=== PATIENT | female | born 1950 | race Caucasian/White ===

== ENCOUNTER 2022-01-02 20:54 | Inpatient (IN) | payer MEDICARE, OTHER ==
[~2022-01-02] VITALS: Ht 167.6 cm; Wt 71.7 kg
--- NOTE | 2022-01-02 21:00 | NUR ---
Patient is medically cleared by Dr Hu
[2022-01-02] MEDS ORDERED: ALPRAZOLAM 0.25 MG TABLET PO ONE (21:15)
--- NOTE | 2022-01-02 21:30 | NUR ---
Report given to Christin ALEXANDER- [facility]
[2022-01-02 22:43] VITALS: BP 142/81
--- NOTE | 2022-01-02 22:44 | NUR ---
Pt. admitted to [facility] ROOM 145B , under care of Dr. TORRES Belongs List completed Grayson RN aware of patient's arrival
[2022-01-02] MEDS ORDERED: ZOLPIDEM 5 MG TABLET PO PRN (23:00)
[2022-01-02] MEDS ORDERED: MAG HYDROX/AL HYDROX/SIMETH 30 ML LIQUID UDC PO PRN (23:00)
[2022-01-02] MEDS ORDERED: BLOOD SUGAR DIAGNOSTIC 1 EACH STRIP VI ONE (23:00)
[2022-01-02] MEDS ORDERED: MAGNESIUM HYDROXIDE 30 ML LIQUID UDC PO PRN (23:00)
--- NOTE | 2022-01-02 23:45 | NUR ---
AT APPROX 22:45 ADMITTED 71 YEARS OLD FEMALE TO [facility] ON A 5150 HOLD FOR DTS. ACCORDING TO THE HOLD, PATIENT WAS YELLING AT BYSTANDERS. 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 SHE ADMITS PREVIOUS 5150 HOLDS. UPON ADMISSION, PATIENT IS A/O X 2 TO 3. SHE NOTED ANXIOUS, PARANOID DELUSIONS AND HYPERVERBAL, PATIENT WAS GIVEN XANAX AT THE ER JUST BEFORE ADMISSION TO THE UNIT. PATIENT REFLECTS WHAT IS WRITE ON THE HOLD. SHE STATED TO THIS COOK FRUIT, "SEE THIS NUNEZ? THOSE ARE SCARS FROM A NUCLEAR ATTACK. DON'T TOUCH THEM BECAUSE YOU WILL GET RADIATION".PATIENT DENIED SI BUT APPEARS TO HAVE HALLUCINATIONS AND DELUSIONS. PATIENT WAS ADVISED OF HER HOLD. SHE WAS GIVEN HER ADVISEMENT WELL HER BOOKLET FOR PATIENT'S RIGHT IN A MENTAL HEALTH FACILITIES. PATIENT'S HOLD WILL ON 01/04/21 AT 2256. SHE IS UNDER THE CARE OF DR TORRES AND JOHNY POE. PT BELONGING WERE INVENTORIED AND SECURED. WILL CONTINUE WITH Q15 MIN CHECKS.
[2022-01-03 07:30] VITALS: BP 116/63
[2022-01-03] MEDS: OLANZAPINE 2.5 MG TABLET PO SCH ×3 (09:00→17:00)
[2022-01-03] MEDS: DIVALPROEX 125 MG TABLET.DR PO SCH ×4 (09:00→17:00)
--- NOTE | 2022-01-03 09:30 | NUR ---
Anxious, angry, refused to take medications, uncooperative with care and will not listen to explanation
--- NOTE | 2022-01-03 10:49 | NUR ---
GPS: FILED AND FAXED [id number] [facility]. PT GIVEN A COPY OF HOLD.
--- NOTE | 2022-01-03 13:01 | NUR ---
Refused to take Depakote
--- NOTE | 2022-01-03 17:02 | NUR ---
Still refused to take medications - Depakote and Zyprexa.
[2022-01-03 17:19] VITALS: BP 110/58
--- NOTE | 2022-01-03 20:00 | NUR ---
RECEIVED PATIENT IN HER ROOM IN BED. PATIENT NOTED AWAKE. SHE APPEARS TO HAVE VISUAL AND AUDITORY HALLUCINATIONS. SHE IS OBSERVED TALKING TO HERSELF, STARING AT THE FITCH. SHE IS A POOR HISTORIAN. SHE IS WITHDRAWN AND ISOLATIVE. SHE IS REASSURED FOR HER SAFETY. SAFETY AND FALL PRECAUTIONS ARE IN PLACE. HIS V/S ARE STABLE. PATIENT IN NO DISTRESS. HE WAS GIVEN PO FLUIDS AND SNACKS. WILL CONTINUE TO MONITOR,
[2022-01-03 21:09] VITALS: BP 123/61
[2022-01-04 07:27] LABS: HEMATOCRIT 37.6 % (31.2-41.9); MEAN CORPUSCULAR HEMOGLOBIN 31.6 uug (24.7-32.8); MEAN CORPUSCULAR VOLUME 89.8 fL (75.5-95.3); PLATELET COUNT (AUTO) 258 K/uL (179-408)
[2022-01-04 07:30] VITALS: BP 133/66
[2022-01-04 07:46] LABS: THYROID STIMULATING HORMONE 0.957 mIU/mL (0.358-3.740)
[2022-01-04 08:12] LABS: BILIRUBIN,TOTAL 0.4 mg/dL (0.2-1.0); CREATININE 0.7 mg/dL (0.6-1.3); MAGNESIUM 2.1 mg/dL (1.8-2.4); PHOSPHOROUS 3.6 mg/dL (2.5-4.9); POTASSIUM 3.9 mmol/L (3.5-5.1); TOTAL PROTEIN, SERUM 6.6 g/dL (6.4-8.2)
[2022-01-04] MEDS: DIVALPROEX 125 MG TABLET.DR PO SCH ×3 (09:10→17:00)
[2022-01-04] MEDS: ARIPIPRAZOLE 5 MG TABLET PO SCH (09:10)
[2022-01-04] MEDS: CYANOCOBALAMIN 1000 MCG/ML VIAL IM SCH (09:12)
--- NOTE | 2022-01-04 12:27 | NUR ---
GPS: 14 DAY HOLD [facility] DONE. PT WILL CONTINUE ON HOLD FOR PROBABLE CAUSE OF GD. PT ATTENDED THE HEARING FOR A MINUTE AND WENT TO THE BATHROOM AND REFUSED TO ATTEND, PER EMPLOYEE SERVICE OFFICER WHO WENT TO CHECK ON PT. PT WAS DISRUPTIVE AND WITH BIZARRE BEHAVIOR.
--- NOTE | 2022-01-04 14:15 | NUR ---
[facility] Initial Discharge Plan: Pt appeared verbally aggressive and refused the assessment. Pt's residence is unclear at this time as appeared verbally aggressive and refused the assessment. Pt does not appear to have any family contact at this time. HUGH will continue to work with pt and MD to ensure a safe and proper discharge plan.
[2022-01-04 16:00] VITALS: BP 106/58
[2022-01-04] MEDS: LORAZEPAM 1 MG TABLET PO PRN (17:51)
--- NOTE | 2022-01-04 18:51 | NUR ---
Pt refused to take 1700 scheduled medication (depakote). She stated that it caused her to have diarrhea and refused. She agreed to take ativan PRN. Pt appears calm at this time, will endorse to production supervisor off shift.
--- NOTE | 2022-01-04 19:14 | NUR ---
GPS: CALLED [facility] FOR PT RECORDS OF ALL DIAGNOSTIC EXAM PERFORMED. PER EMPLOYEE, THEY NEED TO RECEIVE AN AUTHORIZATION LETTER FAX TO THEM AT [phone]. PLACE STAT ON THE FAX. Addendum: 01/05/22 at 0833 by SACHI MISHRA RN DISREGARD, WRONG NOTES FOR PT.
[2022-01-04 20:29] VITALS: BP 133/74
--- NOTE | 2022-01-05 05:31 | NUR ---
The patient was alert and oriented during the shift. Total sleep hours were 8.30. No behavioral issues noted, only multiple requests for food and other things. Safety Stratiges are in place. Continuing to monitor for delusions and hallucinations. Slight paranoia noticed. The patient was offered PRN medication, but declined.
[2022-01-05 07:30] VITALS: BP 137/73
[2022-01-05] MEDS: ARIPIPRAZOLE 5 MG TABLET PO SCH (09:15)
[2022-01-05] MEDS: ACETAMINOPHEN 325 MG TABLET PO PRN (09:17)
[2022-01-05] MEDS: CYANOCOBALAMIN 1000 MCG/ML VIAL IM SCH (09:19)
[2022-01-05] MEDS: OXCARBAZEPINE 300 MG TABLET PO SCH ×2 (09:59→17:00)
--- NOTE | 2022-01-05 10:58 | NUR ---
GPS: PT RECEIVED WALKING AROUND THE HALLWAY AND LIKES WATCHING TV AT THE ACTIVITY ROOM. PT SEEN BY PSYCHIATRIST TODAY AND PT OKAYED TO TAKE THE NEWLY STARTED MED TRILEPTAL AND DC THE DEPAKOTE. OFFERED THE MEDS AND PT TOLERATED IT. PT EASILY GETS IRRITATED AND AGITATED. SPOKE WITH PT LOW TONE PT GETS IRRITATED WHEN ITS LOUD. REQUESTED TYLENOL FOR PAIN. PT A BIT PARANOID AND GUARDED ALL THE TIME.
[2022-01-05 16:00] VITALS: BP 147/70
--- NOTE | 2022-01-05 19:10 | NUR ---
GPS: PT REFUSED TRILEPTAL 1700 DOSE. PER PT "I DON'T LIKE TO TAKE IT". PT EASILY GET IRRITATED.
[2022-01-05 20:00] VITALS: BP 156/72
--- NOTE | 2022-01-05 23:42 | NUR ---
RECEIVED PATIENT IN HER ROOM IN BED. SHE IS NOTED AWAKE A/O X 1 TO 2. SHE IS NOTED WITH FLAT AFFECT, MOOD IS IRRITABLE. SPEECH IS DISORGANIZED. SHE CONTINUE HAVING DELUSIONS OF PERSECUTION. SHE CONTINUE THINKING THAT HER BODY WAS EXPOSED TO HIGH RADIATION AND SHE BELIEVES HER SKIN IS BOTH ARMS AND KNEES ARE BURN FORM THE RADIATION THAT SHE WAS EXPOSED. PATIENT REQUIRES CONSTANT REDIRECTION AND REALITY CHECKS. PATIENT'S V/S ARE STABLE. SAFETY AND FALL PRECAUTION ARE IN PLACE. SHE IS REASSURED FOR HER SAFETY. PO FLUIDS AND SNACKS WERE GIVEN. WILL CONTINUE TO MONITOR.
[2022-01-06 08:12] VITALS: BP 114/75
[2022-01-06] MEDS: OXCARBAZEPINE 300 MG TABLET PO SCH (09:00)
[2022-01-06] MEDS: CYANOCOBALAMIN 1000 MCG/ML VIAL IM SCH (09:05)
[2022-01-06] MEDS: ARIPIPRAZOLE 5 MG TABLET PO SCH ×2 (09:06→17:57)
[2022-01-06] MEDS: ACETAMINOPHEN 325 MG TABLET PO PRN (12:47)
[2022-01-06 16:21] VITALS: BP 155/77
[2022-01-06] MEDS: LORAZEPAM 1 MG TABLET PO PRN ×2 (17:57→19:47)
--- NOTE | 2022-01-06 18:08 | NUR ---
GPS: Nursing note: Pt is cooperative with care, takes medications as scheduled. Per Dr. Rodriguez, discontinued the Trileptal , pt is agreeable to continue taking abilify. Pt was anxious and trying to control other patients, attention seeking. Administered PRN ativan PO. Pt in room calm and brushing teeth at this time. Will endorse.
[2022-01-06 20:07] VITALS: BP 129/67
--- NOTE | 2022-01-06 20:30 | NUR ---
RECEIVED PATIENT IN THE DAY ROOM WATCHING TV. SHE IS NOTED A/O X 2. SHE IS CALM AND COOPERATIVE AT THIS TIME. SHE IS REASSURED FOR HER SAFETY. SAFETY AND FALL PRECAUTION ARE IN PLACE. SHE WAS GIVEN PO FLUIDS AND SNACKS. WILL CONTINUE TO MONITOR.
[2022-01-07] MEDS: ARIPIPRAZOLE 5 MG TABLET PO SCH ×2 (08:54→16:14)
[2022-01-07] MEDS: CYANOCOBALAMIN 1000 MCG/ML VIAL IM SCH (09:43)
[2022-01-07 10:13] VITALS: BP 121/70
--- NOTE | 2022-01-07 14:54 | NUR ---
GPS: Nursing Notes: Thought Disorder: Patient is awake and responding to her name, poor impulse control, loud and pressured speech this AM, argumentative, believes that the psychiatrist told her that she can have coffee at 6 in the morning, redirected and reoriented during shift, get easily irritable when redirected, encouraged to participate in therapeutic groups, needs minimal prompting to comply with her medications, unable to formulate a viable plan for self care, continue to monitor for safety, continue with treatment plan.
--- NOTE | 2022-01-07 15:34 | NUR ---
Firearms Report: Safety Officer completed and submitted a [employer] firearms report for 5150 a danger to yourself. A copy of report has been placed in patient chart.
[2022-01-07 16:48] VITALS: BP 135/73
[2022-01-07] MEDS: ACETAMINOPHEN 325 MG TABLET PO PRN (19:58)
[2022-01-08 07:30] VITALS: BP 140/76
[2022-01-08] MEDS: ARIPIPRAZOLE 5 MG TABLET PO SCH ×2 (08:43→16:35)
[2022-01-08] MEDS: CYANOCOBALAMIN 1000 MCG/ML VIAL IM SCH (08:44)
--- NOTE | 2022-01-08 14:37 | NUR ---
GPS: Nursing Notes: Thought Disorder: Patient is awake and responding to her name, poor impulse control at times, evasive when questioned by staff, gets easily irritable when redirected, argumentative at times, paranoid behavior, believes that she is going to from a nuclear explosion, refusing her Ability this am, but the psychiatrist spoke to patient and agreed to take the medication, unable to formulate a viable plan for self care, continue to monitor for safety, continue with treatment plan.
[2022-01-08 15:47] VITALS: BP 138/78
--- NOTE | 2022-01-09 05:28 | NUR ---
The patient is up early, requesting a shower, new clothes, food and other items. If the staff does not comply exactly as she wants and right away, the patient becomes angry and argumentative. This patient is paranoid about other patients and staff members as well as delusional. Safety Stratiges are in place. Continuing to monitor for behavior escalation and compliance. Sleep hours are 4.00
[2022-01-09 07:30] VITALS: BP 138/75
[2022-01-09] MEDS: CYANOCOBALAMIN 1000 MCG/ML VIAL IM SCH ×2 (09:00→09:05)
[2022-01-09] MEDS: ARIPIPRAZOLE 5 MG TABLET PO SCH ×2 (09:05→17:51)
--- NOTE | 2022-01-09 09:26 | NUR ---
Patient refuses B12 IM. Pt. states "I don't need it. I'm getting out of here pretty soon, I just need to find a penitentiary".
[2022-01-09] MEDS: REMEDY ESSENTIAL ZINC PASTE 113 GM TOP SCH ×2 (14:15→21:00)
--- NOTE | 2022-01-09 15:44 | NUR ---
SW Discharge Update: SW contacted [facility] per pt's request ([phone]) and left a voicemail for a call back regarding discharge questions. A staff member from the front office stated that they are currently in isolation, however she transferred this SW to the women's unit who SW left a voicemail for.
[2022-01-09 16:00] VITALS: BP 154/74
--- NOTE | 2022-01-09 17:33 | NUR ---
Received patient awake in the activity room. Pt. is anxious at times, demanding, attention seeker, accusatory. Pt. states "I'll yell like Rohit if you don't give me what I want. I'm tired of waiting. Everything I ask takes forever". Patient was given z guard for redness in her buttocks and coccyx, patient refuses full assessment. Patient is compliant with medications. Pt. is encourage to vent feelings. Fall and safety precautions implemented.
--- NOTE | 2022-01-09 20:30 | NUR ---
RECEIVED PATIENT IN THE DAY ROOM. SHE IS NOTED A/O X 2 TO 3. SHE IS HYPERVERBAL. SHE HAS MULTIPLE PSYCHOSOMATIC COMPLAINTS. SHE STATED. "I HAVE CANCER, I HAVE SKIN PROBLEMS". PATIENT REQUIRED MULTIPLE REASSURANCE AND REALITY CHECKS. V/S STABLE. B/P NOTED ELEVATED 171/70. PATIENT WAS ASKED IF SHE WANTED B/P MEDICATION AND OR/ PO PRN MEDICATION FOR AGITATION. SHE STATED, "I DON'T NEED THAT, I NEED A DIFFERENT CREAM FOR MY BUTT". PT WAS TOLD TO USE HER COPING SKILLS AND RELAXATION TECHNICS. WILL CONTINUE TO MONITOR.
[2022-01-09 20:34] VITALS: BP 171/70
--- NOTE | 2022-01-09 21:20 | NUR ---
PATIENT'S B/P WAS RECHECKED B/P 152/78MMHG. WILL CONTINUE TO MONITOR.
[2022-01-10 07:30] VITALS: BP 111/69
[2022-01-10] MEDS: ARIPIPRAZOLE 5 MG TABLET PO SCH ×2 (08:48→16:46)
[2022-01-10] MEDS: CYANOCOBALAMIN 1000 MCG/ML VIAL IM SCH (08:54)
[2022-01-10] MEDS: REMEDY ESSENTIAL ZINC PASTE 113 GM TOP SCH ×2 (08:55→20:27)
[2022-01-10] MEDS: ACETAMINOPHEN 325 MG TABLET PO PRN ×2 (14:47→20:27)
[2022-01-10 15:07] VITALS: BP 115/76
--- NOTE | 2022-01-10 17:42 | NUR ---
Received patient is AAO x3 with poor impulse control at times, gets easily irritable when redirected, argumentative at times, paranoid behavior,compliant with all po medication, unable to formulate a viable plan for self care, continue to monitor for safety, continue with treatment plan.
[2022-01-10] MEDS: LORAZEPAM 1 MG TABLET PO PRN (20:27)
[2022-01-10 21:23] VITALS: BP 146/72
--- NOTE | 2022-01-11 03:38 | NUR ---
Received patient , delusional, paranoid, hyperverbal, intrusive and needy. Again , the patient bombards this assembly instructions writer with multiple requests and unreasonable demands , every time she sees this assembly instructions writer. The patient is easily angered , complains about other patients, the doctors the staff and has been arguing with peers. Poor impulse control and little situational awareness. Plan is for the patient to be discharged in am. Safety Stratiges are in place.
[2022-01-11 07:30] VITALS: BP 126/69
[2022-01-11] MEDS: CYANOCOBALAMIN 1000 MCG/ML VIAL IM SCH (08:44)
[2022-01-11] MEDS: ARIPIPRAZOLE 5 MG TABLET PO SCH (08:44)
[2022-01-11] MEDS: REMEDY ESSENTIAL ZINC PASTE 113 GM TOP SCH (08:45)
--- NOTE | 2022-01-11 11:26 | NUR ---
SW Discharge Note: Pt will be discharged via tap card at 12PM with a packet of group home resources that SW provided for the pt due to pt refusing to choose a location. Pts Psychiatrist, Dr. Rodriguez has cleared the pt to discharge independently with a tap card and group home referrals. Pt is alert and oriented x4. Pt is able to plan for self-care at this time. Pt is willing to accept group home resources by this SW. Pt is aware and agreeable with the provided resources. Pt signed a homeless waiver form, and a copy was placed in the chart. SW provided a list of homeless shelters in the pts chosen cities such as, [facility] (Open 24 hours) ([phone]) [address] [place] [address]; [facility] ([phone]) [address] [facility] [address]; [facility] ([phone]) [address] [place] [address] and several more shelters with attached addresses, hours of operation and brief description of the group home services offered. A copy of the referrals has been placed in the patients chart. SW does not have any family contact and pt stated to this typewriter tester to not contact anybody. Pt is aware and agreeable with discharge plans. Pt denies any suicidal or homicidal ideation. Pt will follow-up at the facility with her assigned Psychiatrist at [facility] ([phone]) located at [address] [place] [address] on January 18 at 1:30PM via teletherapy confirmed by Marycruz. Pt is informed. Pt stated she will follow-up with her outpatient [facility]. Pt refused to provide further details. Pt presents with calm mood and congruent affect. PHARMACY: [facility] [address] [place], [place] ([phone]).
--- NOTE | 2022-01-11 13:49 | NUR ---
Discharged patient to Group Home of her choice via tap card at 1330 PM with a packet of half-way resources that SW provided for the pt due to pt refusing to choose a location. Pts Psychiatrist, Dr. Rodriguez has cleared the pt to discharge independently with a tap card and half-way referrals.patient is alert and oriented x3,returned all valuable belonging returned to patient , patient insist she has a passport and emergency detail driver's license came with her,per valuable list not one of them was record , patient escorted by security intelligence analyst to bus stop in stable condition.
== END 2022-01-11 13:30 | disposition home or self-care (01) | DRG 885 ==
LOC: ER 21:02 → GPS 22:28
PROVIDERS: ADMIT Psychiatry & Neurology Psychiatry; ATTEND Internal Medicine
DX: F29 Unspecified psychosis not due to a substance or known physiological condition (principal); F23 Brief psychotic disorder; G93.40 Encephalopathy, unspecified; E53.8 Deficiency of other specified B group vitamins; Z73.6 Limitation of activities due to disability; M19.90 Unspecified osteoarthritis, unspecified site; F43.10 Post-traumatic stress disorder, unspecified; F31.2 Bipolar disorder, current episode manic severe with psychotic features; Z20.822 Contact with and (suspected) exposure to COVID-19
CPT/HCPCS: 36415; 83735; 84100; 84443; 85025; 97161; A4663; J3420